=== PATIENT | female | born 2000 | race Native Hawaiian/Other Pacific Islander ===

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

== ENCOUNTER 2020-07-08 21:35 | Emergency (ER) | payer OTHER ==
[~2020-07-08] VITALS: Ht 154.9 cm; Wt 68.0 kg
[2020-07-08 22:56] VITALS: BP 114/57; TEMP 98.9
== END 2020-07-08 22:58 | disposition home or self-care (01) ==
LOC: ED 21:35
DX: Z33.1 Pregnant state, incidental (principal)
CPT/HCPCS: 81000; 81025; 99283

== ENCOUNTER 2020-07-14 15:11 | Emergency (ER) | payer OTHER ==
[~2020-07-14] VITALS: Ht 154.9 cm; Wt 68.0 kg
[2020-07-14 15:19] VITALS: TEMP 97.3
[2020-07-14 15:52] LABS: PLATELET COUNT 170 K/uL (152-353)
[2020-07-14 16:00] LABS: POTASSIUM 4.6 mmol/L (3.6-5.2)
[2020-07-14 16:01] LABS: PARTIAL THROMBOPLASTIN TIME 26.9 SECONDS (24.5-33.6)
[2020-07-14 16:45] VITALS: BP 118/75
== END 2020-07-14 16:45 | disposition home or self-care (01) ==
LOC: ED 15:11
PROVIDERS: Hospitalist
DX: O20.0 Threatened abortion (principal); Z3A.01 Less than 8 weeks gestation of pregnancy; O23.31 Infections of other parts of urinary tract in pregnancy, first trimester
CPT/HCPCS: 80048; 81000; 84702; 85027; 85610; 85730; 96372; 99283; J0696

== ENCOUNTER 2020-12-05 15:33 | Emergency (ER) | payer OTHER ==
[~2020-12-05] VITALS: Ht 154.9 cm; Wt 77.1 kg
[2020-12-05 15:33] VITALS: TEMP 98.1
[2020-12-05 16:06] LABS: PLATELET COUNT 143 K/uL (152-353)
[2020-12-05 16:15] LABS: POTASSIUM 3.5 mmol/L (3.6-5.2)
[2020-12-05 17:15] VITALS: BP 118/61
== END 2020-12-05 17:15 | disposition home or self-care (01) ==
LOC: ED 15:33
PROVIDERS: Emergency Medicine Emergency Medical Services
DX: O23.33 Infections of other parts of urinary tract in pregnancy, third trimester (principal); Z3A.29 29 weeks gestation of pregnancy
CPT/HCPCS: 36415; 80053; 81000; 85027; 87088; 96360; 96365; 99284; J0696

== ENCOUNTER 2022-11-23 14:31 | Emergency (ER) | payer OTHER ==
[~2022-11-23] VITALS: Ht 154.9 cm; Wt 77.6 kg
[2022-11-23 14:44] VITALS: TEMP 98.2
[2022-11-23 15:17] LABS: PLATELET COUNT 133 K/uL (152-353)
[2022-11-23 15:26] LABS: POTASSIUM 3.5 mmol/L (3.6-5.2); SODIUM 136 mmol/L (136-145)
[2022-11-23 16:20] VITALS: BP 114/63
== END 2022-11-23 16:20 | disposition home or self-care (01) ==
LOC: ED 14:31
PROVIDERS: Emergency Medicine Emergency Medical Services
DX: R07.89 Other chest pain (principal); Z3A.23 23 weeks gestation of pregnancy
CPT/HCPCS: 36415; 80053; 84484; 85027; 93005; 96361; 96374; 99284; J3490

== ENCOUNTER 2023-02-01 15:31 | Emergency (ER) | payer OTHER ==
[~2023-02-01] VITALS: Ht 154.9 cm; Wt 85.7 kg
[2023-02-01 15:31] VITALS: BP 94/42; TEMP 97.6
[2023-02-01 16:16] LABS: PLATELET COUNT 170 K/uL (152-353)
[2023-02-01 16:20] LABS: POTASSIUM 3.2 mmol/L (3.6-5.2)
== END 2023-02-01 18:40 | disposition home or self-care (01) ==
LOC: ED 15:31
PROVIDERS: Family Medicine
DX: K21.9 Gastro-esophageal reflux disease without esophagitis (principal)
CPT/HCPCS: 36415; 80053; 81002; 85027; 96360; 99284